=== PATIENT | female | born 2000 | race Caucasian/White ===

== ENCOUNTER 2023-01-05 14:10 | Emergency (ER) | payer SELFPAY ==
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
[2023-01-05 15:31] VITALS: BP 146/80; PULSE 84; RESP 16; TEMP 36.9; O2SAT 99; BMI 25.5
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
[2023-01-05 16:07] LABS: UPreg QC Valid YES; Urine Pregnancy NEGATIVE (NEGATIVE)
== END 2023-01-05 18:17 | disposition home or self-care (01) ==
PROVIDERS: Nurse Practitioner Family; Emergency Provider Emergency Medicine
DX: Z04.1 Encounter for examination and observation following transport accident (principal); M25.511 Pain in right shoulder; R51.9 Headache, unspecified
CPT/HCPCS: 71046; 81025; 99282; 99283